=== PATIENT | female | born 1970 | race Caucasian/White ===

== ENCOUNTER → 2016-12-31 | Outpatient (CLI) | payer OTHER ==
[~2016-12-31] MED LIST: DOXY100T OR; EFFE150C OR; KEFL500C OR; MULTIVIT PO; TRAZ50TA OR; VIT D 2000 PO; VITA100C7 OR; [UNRECOGNIZED DRUG - OTHER] PO; [UNRECOGNIZED DRUG - REMARK] PO
[2016-12-31 16:44] LABS: ALBUMIN 3.8 GM/DL (3.2-5.2); ALBUMIN/GLOBULIN RATIO 1.12 (1.00-1.93); ALKALINE PHOSPHATASE 66 U/L (45-117); ALT/SGPT 47 U/L (12-78); ANION GAP 7 MEQ/L (8-16); AST/SGOT 29 U/L (15-37); BILIRUBIN,TOTAL 0.4 MG/DL (0.2-1.0); BLOOD UREA NITROGEN 10 MG/DL (7-18); CALCIUM LEVEL 9.1 MG/DL (8.5-10.1); CARBON DIOXIDE LEVEL 27 MEQ/L (21-32); CHLORIDE LEVEL 106 MEQ/L (98-107); CHOLESTEROL LEVEL 264 MG/DL (<200); CREATININE FOR GFR 0.75 MG/DL (0.55-1.02); GLOMERULAR FILTRATION RATE > 60.0 (>58); GLUCOSE, FASTING 88 MG/DL (70-105); POTASSIUM SERUM 4.6 MEQ/L (3.5-5.1); SODIUM LEVEL 140 MEQ/L (136-145); TOTAL PROTEIN 7.2 GM/DL (6.4-8.2); TRIGLYCERIDES LEVEL 77 MG/DL (<150)
--- NOTE | 2016-12-31 16:58 | REP ---
Chest two views HISTORY: Chest pain Comparison: None The lungs are clear. The heart is normal in size. The pulmonary vasculature is normal in appearance. The bony structure is intact. IMPRESSION: No acute disease. Signed by Esau Carlson MD 12/31/2016 04:49 P
[2016-12-31 17:41] LABS: BASO % 0.6 % (0.0-1.0); EOS # 0.3 K/mm3 (0.0-0.50); EOS % 3.7 % (0.0-3.0); LARGE UNSTAINED CELL # 0.1 K/mm3 (0.0-0.4); LARGE UNSTAINED CELL % 1.6 % (0.0-4.0); LYMPH # 2.8 K/mm3 (1.5-4.5); LYMPH % 36.5 % (24.0-44.0); MEAN CORPUSCULAR HEMOGLOBIN 30.1 pg (27.0-33.0); MONO # 0.3 K/mm3 (0.0-0.8); MONO % 3.9 % (0.0-5.0); NEUTROPHILS % 53.7 % (36.0-66.0); PLATELET COUNT, AUTOMATED 265 k/mm3 (150-450); RED CELL DISTRIBUTION WIDTH 13.2 % (11.5-14.5); WHITE BLOOD COUNT 7.4 K/mm3 (4.0-10.0)
--- NOTE | 2017-01-02 18:05 | ECGEPIP ---
Stationary ECG Study 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
== END ==
LOC: M LAB 15:25
PROVIDERS: ATTEND Nurse Practitioner Family
DX: R07.9 Chest pain, unspecified (principal); Z11.4 Encounter for screening for human immunodeficiency virus [HIV]

== ENCOUNTER → 2017-03-17 | Outpatient (REF) | payer OTHER | LOC: M LAB REF 12:25 | PROVIDERS: ATTEND Nurse Practitioner Family | DX: L72.9 Follicular cyst of the skin and subcutaneous tissue, unspecified (principal) ==

== ENCOUNTER → 2017-04-09 | Outpatient (CLI) | payer OTHER ==
--- NOTE | 2017-04-09 16:42 | REP ---
MRI LUMBAR SPINE WITHOUT CONTRAST: HISTORY: Back pain. Decreased signal intensity on T2 weighted images is present in the L2-3 through L5-S1 intervertebral discs. The discs are decreased in height. These findings are consistent with disc degeneration. There is no disc bulge or herniation at the L1-2 and L2-3 levels. There is hypertrophy of the posterior articulating facets at the L2-3 level. The nerves exit the neural foramina without compression. A diffuse disc bulge is present at the L3-4 level. There is hypertrophy of the ligamenta flava and posterior articulating facets. These findings produce mild central canal stenosis. The L3 nerves exit the neural foramina without compression. A diffuse disc bulge is present at the L4-5 level. There is hypertrophy of the ligamenta flava and posterior articulating facets. There are 5 mm of grade 1 spondylolisthesis of L4 on 5. These findings produce severe central canal stenosis. A 6 mm cyst is present anterior to the left L4 facet in the neural foramen. There is compression of the L4 nerves in the neural foramina. A diffuse disc bulge is present at the L5-S1 level. This abuts the thecal sac and S1 nerves. There is hypertrophy of the posterior articulating facets. The L5 nerves exit the neural foramina without compression. Two 6 mm cysts are present posterior to the right L5 facet. The conus medullaris is normal in appearance terminating at the level of the T12-L1 intervertebral discs. Normal signal intensity is present in the lumbar vertebral bodies. IMPRESSION: 1. Mild central canal stenosis at the L3-4 level secondary to disc bulge ligamentous and facet hypertrophy. 2. Severe central canal stenosis at the L4-5 level secondary to disc bulge, ligamentous and facet hypertrophy and grade 1 spondylolisthesis. There is compression of the L4 nerves in the neural foramina. 3. Diffuse disc bulge at the L5-S1 level. This abuts the thecal sac and S1 nerves. Signed by Esau Carlson MD 04/09/2017 04:51 P
== END ==
LOC: M RAD 13:41
PROVIDERS: ATTEND Physician Assistant
DX: M48.06 Spinal stenosis, lumbar region (principal); M51.27 Other intervertebral disc displacement, lumbosacral region; M43.16 Spondylolisthesis, lumbar region

== ENCOUNTER → 2017-04-17 | Outpatient (REF) | payer OTHER | LOC: M LAB REF 18:57 | PROVIDERS: ATTEND Surgery | DX: L72.12 Trichodermal cyst (principal) ==

== ENCOUNTER → 2020-09-30 | Outpatient (CLI) | payer SELFPAY | LOC: M LABSMTC 08:12 | PROVIDERS: ATTEND Pediatrics | DX: Z20.822 Contact with and (suspected) exposure to COVID-19 (principal) ==

== ENCOUNTER 2023-04-29 10:30 | Emergency (ER) | payer OTHER, SELFPAY ==
[~2023-04-29] VITALS: Ht 167.6 cm; Wt 77.5 kg
[2023-04-29] MEDS ORDERED: METH-1165 PO (10:36)
[2023-04-29] MEDS ORDERED: MEDR4PAK PO (13:33)
[2023-04-29] MEDS ORDERED: ASPE4PAD TOP (13:33)
[2023-04-29] MEDS ORDERED: ACETAMINOPHEN 325 MG TAB PO ONE (13:35)
[2023-04-29] MEDS ORDERED: LIDOCAINE 5% (LIDODERM) PATCH TD ONE (13:35)
[2023-04-29] MEDS ORDERED: METH-1164 PO (13:59)
[2023-04-29 14:02] VITALS: BP 166/77; TEMP 97.8; O2SAT 100
== END 2023-04-29 14:04 | disposition home or self-care (01) ==
LOC: M ED 10:30
DX: S39.012A Strain of muscle, fascia and tendon of lower back, initial encounter (principal); X58.XXXA Exposure to other specified factors, initial encounter; Y92.89 Other specified places as the place of occurrence of the external cause; Y93.89 Activity, other specified; Y99.8 Other external cause status; M51.37 Other intervertebral disc degeneration, lumbosacral region; F17.200 Nicotine dependence, unspecified, uncomplicated; Z88.0 Allergy status to penicillin

== ENCOUNTER → 2024-01-15 | Outpatient (CLI) | payer OTHER ==
[~2024-01-15] MED LIST changes: +ASPE4PAD TOP; +MEDR4PAK PO; +METH-1164 PO; +METH-1165 PO
[2024-01-15 16:05] LABS: BASO # 0.1 10^3/uL (0.0-0.2); BASO % 0.9 % (0.0-1.0); EOS # 0.3 10^3/uL (0.0-0.5); EOS % 3.8 % (0.0-3.0); HEMATOCRIT 39.6 % (36.0-47.0); LYMPH # 3.8 10^3/uL (1.5-5.0); LYMPH % 46.9 % (24.0-44.0); MEAN CORPUSCULAR HEMOGLOBIN 29.9 pg (27.0-33.0); MEAN CORPUSCULAR HGB CONC 32.8 g/dl (32.0-36.5); MONO # 0.5 10^3/uL (0.0-0.8); MONO % 5.8 % (2.0-8.0); NEUTROPHILS # 3.4 10^3/uL (1.5-8.5); NEUTROPHILS % 42.5 % (36.0-66.0); PLATELET COUNT, AUTOMATED 320 10^3/uL (150-450); RED BLOOD COUNT 4.35 10^6/uL (4.00-5.40)
[2024-01-15 16:57] LABS: CARBON DIOXIDE LEVEL 29 MMOL/L (20-31); CHLORIDE LEVEL 107 MMOL/L (98-107); POTASSIUM SERUM 4.5 MMOL/L (3.5-5.1); SODIUM LEVEL 142 MMOL/L (136-145)
[2024-01-15 18:13] LABS: ALKALINE PHOSPHATASE 86 U/L (46-116); ALT/SGPT 34 U/L (7.0-40); AST/SGOT 30 U/L (<34); BILIRUBIN,TOTAL 0.4 MG/DL (0.3-1.2); BLOOD UREA NITROGEN 13 MG/DL (9-23); CALCIUM LEVEL 9.8 MG/DL (8.5-10.1); CHOLESTEROL LEVEL 254 MG/DL (<200); CHOLESTEROL RISK RATIO 2.67 (<5); FREE T4 1.01 NG/DL (0.89-1.76); GLOMERULAR FILTRATION RATE > 60.0 (>51); GLUCOSE, FASTING 73 MG/DL (60-100); HDL CHOLESTEROL 94.9 MG/DL (>40); LDL CHOLESTEROL 142.5 MG/DL (<100); MAGNESIUM LEVEL 1.8 MG/DL (1.8-2.4); NON-HDL-C 159.1 MG/DL; TOTAL PROTEIN 6.9 G/DL (5.7-8.2); TRIGLYCERIDES LEVEL 83 MG/DL (<150)
[2024-01-15 18:15] LABS: TOTAL 25(OH) VITAMIN D 38.1 NG/ML (20.0-100.0)
[2024-01-15 19:46] LABS: HEMOGLOBIN A1c 5.4 % (4.0-6.0)
== END ==
LOC: M PLALAB 12:28
PROVIDERS: ATTEND Physician Assistant Medical
DX: E55.9 Vitamin D deficiency, unspecified (principal)